=== PATIENT | female | born 1950 ===

== ENCOUNTER 2023-03-07 09:27 | Emergency (ER) | payer MEDICARE ==
[2023-03-07] MEDS: Acetaminophen 500 MG Tab PO ONE (10:03)
[2023-03-09] MEDS: Acetaminophen 500 MG Tab ONE (07:47)
== END 2023-03-07 10:05 | disposition home or self-care (01) ==
LOC: LB.ED 09:27
DX: S00.461A Insect bite (nonvenomous) of right ear, initial encounter (principal); I10 Essential (primary) hypertension; E78.00 Pure hypercholesterolemia, unspecified; E11.9 Type 2 diabetes mellitus without complications; Z90.49 Acquired absence of other specified parts of digestive tract; Z79.4 Long term (current) use of insulin; Z79.899 Other long term (current) drug therapy; W57.XXXA Bitten or stung by nonvenomous insect and other nonvenomous arthropods, initial encounter
CPT/HCPCS: 99282; A9270